=== PATIENT | male | born 1955 | race Caucasian/White ===

== ENCOUNTER 2020-04-23 06:46 | Inpatient (IN) ==
--- NOTE | 2020-04-16 14:33 | Anesthesiology Consultation ---
Date of Service April 16, 2020 Assessment & Plan (1) Encounter for pre-operative examination: Chart Review Chart Review: Acceptable Risk for Surgery (pending DOS labs and preop Covid testing results ) and Patient NOT seen in Pre Admission Testing - No updated preop labs done- will order CBC with diff, PRP and PT/PTT/INR for stat AM of surgery. - Check BSG AM DOS Per nursing assessment 04/16/2020, patient resides in [facility]. Denies recent travel. Wears mask, uses good hand hygiene and socially distances. No known Covid positive contacts or Covid related symptoms. Pt scheduled for preop Covid testing 04/18/20. History Surgery Operation Date: 04/23/20 07:30 Proposed Procedures p Right Total Shoulder Arthroplasty - Jagdish Muse DO s Versus Reverse Total Shoulder Arthroplasty - Jagdish Muse DO Height/Weight Height: 5 ft 8 in Weight: 120.202 kg Allergies Allergy/AdvReac Type Severity Reaction Status Date / Time No Known Allergies Allergy Verified 04/16/20 13:16 Medications Home Medications Medication Instructions Recorded Confirmed Last Taken amlodipine 10 mg tablet 10 mg PO QAM 06/21/19 04/16/20 Unknown aspirin 81 mg tablet,delayed 81 mg PO QAM 06/21/19 04/16/20 Unknown release ferrous sulfate 325 mg (65 mg 650 mg PO QAM 06/21/19 04/16/20 Unknown iron) tablet fluoxetine 20 mg capsule 20 mg PO QAM 06/21/19 04/16/20 Unknown losartan 100 mg tablet 100 mg PO QAM 06/21/19 04/16/20 Unknown oxycodone 5 mg capsule 5 mg PO QID PRN cap 06/21/19 04/16/20 Unknown potassium chloride 10 mEq 10 meq PO BID 06/21/19 04/16/20 Unknown tablet,extended release(part/cryst) terazosin 10 mg capsule 10 mg PO QPM 06/21/19 04/16/20 Unknown trazodone 50 mg tablet 50 - 100 mg PO QPM PRN 06/21/19 04/16/20 Unknown valacyclovir 1 gram tablet 1,000 mg PO QAM 06/21/19 04/16/20 Unknown cholecalciferol (vitamin D3) 10,000 unit PO QAM 09/14/19 04/16/20 Unknown [Vitamin D3] cyanocobalamin (vitamin B-12) 1,000 mcg PO QAM 09/14/19 04/16/20 Unknown [Vitamin B-12] jmnzvoun-ayi-uolfw-vit K-lycop 1 tab PO QAM 09/14/19 04/16/20 Unknown [Men's 50 Plus Multivitamin] torsemide 10 mg PO BID 09/14/19 04/16/20 Unknown Past Medical History Medical History Anemia Has issues with iron absorption since gastric bypass - takes iron supplement 130mg daily Chronic pain back and right shoulder Depression Enlarged prostate History of asthma as child- no current issues History of atrial fibrillation had ablation - no longer an issue- no recent cardio follow up - was on Pradaxa- d/c'ed- no issues with one month long Holter monitor 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, LEFT EYE Hx of diabetes mellitus Diet controlled; had gastric surgery - weight loss and no longer on meds Hypertension Osteoarthritis Sleep apnea Uses BiPAP q HS Spinal stenosis Past Family History Family History Mother FHx: stomach cancer Past Surgical History Surgical History History of excision of pilonidal cyst History of left shoulder replacement History of radiofrequency ablation (RFA) procedure for cardiac arrhythmia 2013 [facility] History of total left knee replacement Hx of cardiac cath 2013 [facility] Hx of colonoscopy Hx of gastric bypass 2007 [place] Social History Smoking Status: Never smoker Do You Dip or Chew Tobacco: No Hx Alcohol Use: Yes Alcohol type: wine alcohol intake frequency: a few times a week Hx Substance Use: No substance use type: does not use Testing Electrocardiogram Date: 09/20/19 SB with 1st degree AVB at 51bpm. Rightward axis. Chest X-Ray Date: 09/20/19 Mild cardiac enlargement without radiographic evidence of congestive failure. Trace pleural effusions. Atelectasis is noted at the lung bases. There is no airspace consolidation typical for pneumonia. There is no pneumothorax. The pulmonary vascular structures noncongested.
[2020-04-18 14:18] LABS: Basophils # (auto) 0.02 K/uL (0-0.2); Basophils % (auto) 0.4 %; Eosinophils # (auto) 0.33 K/uL (0-0.5); Eosinophils % (auto) 6.1 %; Hematocrit (blood only) 43.1 % (42-52); Lymphocytes # (auto) 1.58 K/uL (1.2-3.4); Lymphocytes % (auto) 29.2 %; Mean Corpuscular Hemoglobin 30.5 pg (25-34); Mean Corpuscular Hgb Conc 32.5 g/dL (32-36); Mean Corpuscular Volume 93.9 fL (80-100); Mean Platelet Volume 11.3 fL (7.4-10.4); Monocytes # (auto) 0.45 K/uL (0.11-0.59); Monocytes % (auto) 8.3 %; Neutrophils # (auto) 3.03 K/uL (1.4-6.5); Platelet Count 173 K/uL (130-400); RDW Coefficient of Variation 13.8 % (11.5-14.5); RDW Standard Deviation 47.6 fL (36.4-46.3); Red Blood Count 4.59 M/uL (4.7-6.1); White Blood Count 5.41 K/uL (4.8-10.8)
[2020-04-18 14:28] LABS: INR 1.1 (0.9-1.1); Partial Thromboplastin Ratio 1.1; Partial Thromboplastin Time 31.6 Seconds (21.0-31.0); Prothrombin Time 11.2 Seconds (9.0-12.0)
[2020-04-18 14:46] LABS: BUN Creatinine Ratio 10.7 (10-20); Blood Urea Nitrogen 20 mg/dl (7-18); Calcium 9.5 mg/dl (8.5-10.1); Carbon Dioxide 30 mmol/L (21-32); Chloride 106 mmol/L (98-107); Est GFR (African American) 43.6; Est GFR (Non-African American) 37.6; Glucose 83 mg/dl (70-99); Potassium 3.7 mmol/L (3.5-5.1); Sodium 142 mmol/L (136-145)
--- NOTE | 2020-04-19 12:15 | History & Physical Report ---
Date of Service April 19, 2020 Assessment & Plan (1) Osteoarthritis of right shoulder: We will proceed with a right total shoulder arthroplasty. Postoperatively he will be placed in a sling and kept overnight in the hospital for postoperative medical management. He plans to go to outpatient physical therapy at [facility] upon discharge. Present on Admission?: Yes History of Present Illness Chief Complaint: Primary osteoarthritis of the right shoulder Primary Care Provider: Zen Peñaloza is a pleasant 64-year-old male who is been dealing with chronic increasing right shoulder pain. X-rays and clinical examination have been diagnostic for advanced osteoarthritis of the right shoulder. He does have a history of a left shoulder replacement done by Dr. Neff at [facility] orth[facility] and has done fairly well with that. He is now ready to proceed with a right shoulder replacement surgery. Allergies Allergy/AdvReac Type Severity Reaction Status Date / Time No Known Allergies Allergy Verified 04/16/20 13:16 Home Medications Home Medications Medication Instructions Recorded Confirmed Type amlodipine 10 mg tablet 10 mg PO QAM 06/21/19 04/16/20 History aspirin 81 mg tablet,delayed 81 mg PO QAM 06/21/19 04/16/20 History release ferrous sulfate 325 mg (65 mg 650 mg PO QAM 06/21/19 04/16/20 History iron) tablet fluoxetine 20 mg capsule 20 mg PO QAM 06/21/19 04/16/20 History losartan 100 mg tablet 100 mg PO QAM 06/21/19 04/16/20 History oxycodone 5 mg capsule 5 mg PO QID PRN cap 06/21/19 04/16/20 History potassium chloride 10 mEq 10 meq PO BID 06/21/19 04/16/20 History tablet,extended release(part/cryst) terazosin 10 mg capsule 10 mg PO QPM 06/21/19 04/16/20 History trazodone 50 mg tablet 50 - 100 mg PO QPM PRN 06/21/19 04/16/20 History valacyclovir 1 gram tablet 1,000 mg PO QAM 06/21/19 04/16/20 History cholecalciferol (vitamin D3) 10,000 unit PO QAM 09/14/19 04/16/20 History [Vitamin D3] cyanocobalamin (vitamin B-12) 1,000 mcg PO QAM 09/14/19 04/16/20 History [Vitamin B-12] ttfnbnxo-qyj-hecpb-vit K-lycop 1 tab PO QAM 09/14/19 04/16/20 History [Men's 50 Plus Multivitamin] torsemide 10 mg PO BID 09/14/19 04/16/20 History Past Med/Surg History Medical History Anemia Has issues with iron absorption since gastric bypass - takes iron supplement 130mg daily Chronic pain back and right shoulder Depression Enlarged prostate History of asthma as child- no current issues History of atrial fibrillation had ablation - no longer an issue- no recent cardio follow up - was on Pradaxa- d/c'ed- no issues with one month long Holter monitor 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, LEFT EYE Hx of diabetes mellitus Diet controlled; had gastric surgery - weight loss and no longer on meds Hypertension Osteoarthritis Sleep apnea Uses BiPAP q HS Spinal stenosis Surgical History History of excision of pilonidal cyst History of left shoulder replacement History of radiofrequency ablation (RFA) procedure for cardiac arrhythmia 2013 - [facility] History of total left knee replacement Hx of cardiac cath 2013 [facility] Hx of colonoscopy Hx of gastric bypass [place] [facility] Family History Mother FHx: stomach cancer Social History Smoking Status: Never smoker Second Hand Exposure: Yes (FATHER SMOKED); Hx Alcohol Use: Yes Alcohol type: wine Hx Substance Use: No Preferred Language: Tunisian Communication Ability: Effective Beliefs That Will Affect Care: None Current Living Situation: Spouse Feels Safe at Home: Yes Review of Systems Review of Systems: All systems reviewed & are unremarkable except as noted in HPI & below Physical Exam Constitutional: WD/WN, vitals as above Eyes: PERRL, conjunctivae normal, anicteric sclerae ENMT: external ear and nose normal, oropharynx normal Neck: trachea midline, no thyromegaly Respiratory: normal respiratory effort Cardiovascular: RRR, no murmur, no edema Gastrointestinal (Abdomen): normal bowel sounds, soft, nontender, no hepatosplenomegaly Musculoskeletal: Physical examination of the right shoulder reveals decreased range of motion and crepitis throughout. There is good strength with full can testing and external rotation. There is tenderness palpation along the anterior glenohumeral joint line. The right upper extremity is neurovascularly intact. Psychiatric: A+Ox3, euthymic affect Results & Data Results & Data ([facility]) Diagnostic Findings Radiographs of the right shoulder show osteoarthritis of the glenohumeral joint. There is joint space narrowing, osteophyte formation, and hxxk-ha-wkif articulation. PG Care Time/CCT Total # of Minutes Spent Total Time Spent with Patient: Total time spent is greater than 50% in coordination of care (as documented) at patient's floor/unit and/or counseling patient: Coding Level of Care Code 39168 Initial Inpt Care Lvl 2 Diagnoses Osteoarthritis of right shoulder M19.011
[~2020-04-23 06:46] MED LIST: ACETAMINOPHEN 500 MG TAB PO SCH; BUPIVACAINE 0.5 % 5 MG/1 ML PF 10ML VIAL ONE; CEFAZOLIN 3000MG 72.5 ML IV SCH; FAMOTIDINE 20 MG TAB PO SCH; GABAPENTIN 300 MG CAP PO SCH; LR 15ML/HR IV SCH; LR 60ML/HR IV SCH; ROPIVACAINE 0.5% HCL/PF 150 MG, BUPIVACAINE 0.5% MPF 30 ML, EPINEPHrine 30MG/30ML (OR U... INFIL SCH; TRANEXAMIC ACID 1,000 MG **IV Intra-op IV SCH; TRANEXAMIC ACID 1,000 MG **IV Pre-op IV SCH; dexAMETHasone 4 MG TAB PO SCH
--- NOTE | 2020-04-23 07:29 | History & Physical Bridge Note ---
Date of Service April 23, 2020 History & Physical Bridge Note I have examined the patient, reviewed the History & Physical and in the interval since the performance of the History & Physical I have noted the following changes of clinical significance: no changes noted
[2020-04-23 08:56] LABS: SARS CoV2 RNA (COVID-19) NOT DETECTED
[2020-04-23] MEDS ORDERED: ORTHO JOINT ANESTHETIC ONE (09:30)
--- NOTE | 2020-04-23 11:12 | Operative Report ---
PG Post Operative Report Pre & Post Diagnosis Operation Date: 04/23/20 09:05 Pre-Op Diagnosis: Degenerative Joint Disease Right Shoulder with tendinopathy of the long head of the biceps tendon Post-Op Diagnosis: Degenerative Joint Disease Right Shoulder with tendinopathy of the long head of the biceps tendon I identified the patient and participated in the time-out.: Yes Procedure Operation Date: 04/23/20 09:05 Actual Procedures p Right Total Shoulder Arthroplasty, Cemented with open biceps tenodesis as a distinct and separate procedure (modifier 59) Surgeon Jagdish Muse DO Compounder Helper Jagdish Howard PAC Estimated Blood Loss 250 Findings Consistent with Post-Op Diagnosis Specimens Right humeral head Complications none Disposition Disposition: Recovery Room Indications Jh is a pleasant 64-year-old male who is been dealing with chronic increasing right shoulder pain. X-rays and clinical examination were diagnostic for advanced osteoarthritis of the right shoulder. After failing conservative treatment, he elected to proceed with a right total shoulder arthroplasty. Description of Procedure A CPT code modifier 59: The long head of the biceps tendon was enlarged and inflamed consistent with tendinopathy. A tenodesis was opted. This was a separate and distinct portion of the procedure. For these reasons, a CPT code modifier 59 will be added to this case. Implants used: I used a [employer] Comprehensive total shoulder arthroplasty system with a size 14 press fit micro humeral stem, a size 50 x 21 eccentric humeral head, and a 3 glenoid with a trabecular metal peg. The glenoid was cemented in place with Palacos G cement. Simon arrived at [facility] for the above procedure. He was seen in the preoperative holding area and the operative extremity was identified and signed. He was given a preoperative antibiotic, TXA, and an interscalene nerve block. He was taken back to the operating room, laid on table in supine posi tion, and put under general anesthesia. He was then put into the beachchair position. The shoulder was then prepped and draped in sterile fashion. A timeout was done and the patient and the operative extremity was properly identified. A deltopectoral approach was used. Dissection was taken down through the fascia and the deltoid was retracted laterally and the conjoined tendon was retracted m edially. The anterior shoulder was exposed. The biceps groove was opened up and the biceps tendon was examined extensively. The biceps tendon demonstrated enlargement and inflammatory changes consistent with longstanding inflammation in the context of osteoarthritis. The long head of the biceps tendon was then tenodesed to the upper border of the pectoralis major. This was a separate and distinct portion of the procedure. The subscapularis was then released off the lesser tuberosity with a centimeter of cuff tissue remaining. The inferior capsule was released and the humeral head was dislocated. The rotator cuff was inspected and intact. A canal finding reamer was sent down the center of the humeral canal. Sequential reaming up to a size 14 reamer was done. Offset reamer a proximal humeral resection guide was placed. The proximal humerus was resected at 135 of inclination and 30 of retroversion. Inferior osteophytes were then removed and the glenoid was exposed. Time was spent doing an appropriate labral release. The glenoid measured to be a size 3. A 3.2 mm Steinmann pin was placed in the central hole of the glenoid vault pin guide. The glenoid was then reamed with a propeller reamer. The central post cutter was then used to prepare for the central boss. The cannulated peripheral peg drill guide was then placed and 3 peg holes were drilled. The final size 3 glenoid was then cemented in place with Palacos G cement. Surrounding soft tissues were then injected with 100 cc of an orthopedic pain control cocktail. Once cement had dried the proximal humerus was once again exposed. Sequential broaching of the humerus up to a size 14 broach was done. Off that broach a size 50 x 21 eccentric humeral head was trialed. The shoulder was then reduced, brought through a full range of motion, and felt to be stable. The shoulder was then dislocated and the broach was removed. The final size 14 micro humeral stem implant was then impacted into place. A size 50 x 21 eccentric humeral head was then impacted onto the humeral stem. The shoulder was then reduced and once again brought through a full range of motion and felt to be stable. The subscapularis was then tenodesed back to the lesser tuberosity with transosseous FiberWire sutures and side to side sutures with the arm in 45 of external rotation. 2 sutures were placed in the lateral rotator interval. A dilute betadyne lavage was then done for 3 minutes. The joint was then irrigated with normal saline solution. Hemostasis was obtained. The interval was closed with 2-0 Vicryl suture. The skin was closed with 2-0 Vicryl and ezra. A Silverlon dressing was placed and the arm was rested in a regular arm sling. He was then extubated and transferred to a hospital bed. He was taken to the postanesthesia care unit in stable condition. He tolerated the procedure well. Jagdish Howard PA-C, was present for the entire procedure. He was critical for patient positioning, prepping, draping, retraction exposure, wound closure and application of sterile dressing. I attest to the content of the Intraoperative Record and any orders documented therein. Any exceptions are noted below.
--- NOTE | 2020-04-23 12:04 | XRay Report ---
XR shoulder RT min 2V routine HISTORY: 64 years-old Male Post shoulder surgery right shoulder total joint arthroplasty COMPARISON: Right shoulder radiographs 04/10/2020 TECHNIQUE: 2 views of the right shoulder FINDINGS: Right shoulder total joint arthroplasty demonstrates satisfactory alignment without acute fracture or unexpected radiopaque foreign body. Lateral skin ezra are noted along with expected postsurgical soft tissue swelling and deep tissue air. Hypoinflation with right lung base opacities suggestive of atelectasis. IMPRESSION: Right shoulder total joint arthroplasty with expected postoperative changes. ACT 112: Negative or not required by law. The above report was generated using voice recognition software. It may contain grammatical, syntax o r spelling errors. Electronically signed by: Barrie Macias M.D. 04/23/2020 12:02 PM
[2020-04-23] MEDS ORDERED: ePHEDrine sulfate 50 MG/ML AMP IV PRN (12:16)
[2020-04-23] MEDS ORDERED: ATROPINE SULFATE 0.1 MG/ML 10ML SYR IV PRN (12:16)
[2020-04-23] MEDS ORDERED: fentaNYL citrate 100 MCG/2 ML VIAL IV PRN (12:16)
[2020-04-23] MEDS ORDERED: ONDANSETRON INJ 2 MG/ML 2 ML VIAL IV PRN ×2 (12:16→12:59)
--- NOTE | 2020-04-23 12:17 | Anesthesiology Progress Note ---
Date of Service April 23, 2020 Anesthesia Post Procedure Vital Signs Vital Signs: Temp Pulse Pulse Resp BP Pulse Ox 04/23/20 12:10 56 L 15 112/62 97 04/23/20 12:00 64 12 154/69 H 95 04/23/20 11:50 67 18 141/77 H 97 04/23/20 11:41 98.1 F 66 12 147/84 H 98 04/23/20 09:15 49 L 16 121/73 100 04/23/20 09:05 51 L 18 120/74 100 04/23/20 08:31 57 L 18 174/80 H 99 04/23/20 07:44 97.9 F 63 20 173/85 H 96 Pain Intensity Right Shoulder: Pain Intensity: 0 Transfer of Care Handoff Completed per policy Notes Mental Status: alert / awake / arousable and participated in evaluation Patient Amnestic to Procedure: Yes Nausea / Vomiting: adequately controlled Pain: adequately controlled Airway Patency, RR, SpO2: stable & adequate BP & HR: stable & adequate Hydration State: stable & adequate Anesthetic Complications: no major complications apparent and Pt Satisfied with anesthetic care
[2020-04-23] MEDS ORDERED: HYDROmorphone INJ 0.5 MG/0.5 ML SYR IV PRN (12:59)
[2020-04-23] MEDS ORDERED: METOCLOPRAMIDE HCL INJ 5 MG/ML 2 ML VIAL IV PRN (12:59)
[2020-04-23] MEDS ORDERED: bisacodyL 10 MG SUPP PR PRN (12:59)
[2020-04-23] MEDS ORDERED: OXYCODONE HCL IR 5 MG TAB (IMMEDIATE RELEASE) PO PRN (12:59)
[2020-04-23] MEDS ORDERED: TRAZODONE HCL 50 MG TAB PO PRN (12:59)
[2020-04-23] MEDS ORDERED: NALOXONE HCL 0.4 MG/1 ML VIAL/CARP IV PRN (12:59)
[2020-04-23] MEDS ORDERED: MAGNESIUM HYDROXIDE SUSP 30 ML UDC PO PRN (12:59)
[2020-04-23] MEDS: ACETAMINOPHEN 500 MG TAB PO SCH ×2 (14:24→23:06)
[2020-04-23] MEDS: KETOROLAC TROMETHAMINE 15 MG/ML VIAL IV SCH ×2 (14:24→20:47)
[2020-04-23] MEDS: CEFAZOLIN 2000MG 2,000 MG/15 ML SYR IV SCH (16:44)
[2020-04-23] MEDS: TORSEMIDE 10 MG TAB PO SCH (16:45)
[2020-04-23] MEDS: SODIUM CHLORIDE 0.9% 1000ML 1,000 ML IV SCH ×2 (18:40→20:54)
[2020-04-23] MEDS: POTASSIUM CHLORIDE 10 MEQ TABCR PO SCH (20:47)
[2020-04-23] MEDS: DOCUSATE SODIUM 100 MG CAP PO SCH (20:47)
[2020-04-23] MEDS ORDERED: TERAZOSIN HCL 5 MG CAP PO SCH (21:00)
[2020-04-23] MEDS ORDERED: SENNA 8.6 MG TAB PO SCH (21:00)
[2020-04-24] MEDS: CEFAZOLIN 2000MG 2,000 MG/15 ML SYR IV SCH (01:57)
[2020-04-24] MEDS: KETOROLAC TROMETHAMINE 15 MG/ML VIAL IV SCH ×2 (01:57→08:52)
[2020-04-24] MEDS: ACETAMINOPHEN 500 MG TAB PO SCH (05:36)
[2020-04-24 06:24] LABS: Hematocrit (blood only) 38.7 % (42-52); Immature Granulocytes # (auto) 0.01 K/uL (0.00-0.02); Immature Granulocytes % (auto) 0.1 %; Lymphocytes # (auto) 0.76 K/uL (1.2-3.4); Mean Corpuscular Hemoglobin 31.6 pg (25-34); Mean Corpuscular Hgb Conc 33.6 g/dL (32-36); Mean Corpuscular Volume 94.2 fL (80-100); Mean Platelet Volume 10.8 fL (7.4-10.4); Monocytes # (auto) 0.56 K/uL (0.11-0.59); Monocytes % (auto) 5.2 %; Neutrophils # (auto) 9.53 K/uL (1.4-6.5); Neutrophils % (auto) 87.7 %; Platelet Count 152 K/uL (130-400); RDW Coefficient of Variation 13.8 % (11.5-14.5); RDW Standard Deviation 47.6 fL (36.4-46.3); Red Blood Count 4.11 M/uL (4.7-6.1); White Blood Count 10.86 K/uL (4.8-10.8)
[2020-04-24 06:46] LABS: BUN Creatinine Ratio 12.6 (10-20); Calcium 9.2 mg/dl (8.5-10.1); Creatinine Clr Calc Pharmacy 48.4 ml/min; Est GFR (African American) 40.1; Est GFR (Non-African American) 34.6; Potassium 4.2 mmol/L (3.5-5.1)
--- NOTE | 2020-04-24 06:50 | Orthopedic Progress Note ---
Date of Service April 24, 2020 Assessment & Plan (1) Status post replacement of right shoulder joint: Overall he is doing very well. Is not having much pain in the right shoulder. He will be seen by physical therapy today for ambulation and range of motion exercises. He can be discharged home later today. He will follow-up with orthopedics in 2 weeks. Present on Admission?: Yes Admission and Anticipated Discharge Date Admission Date: April 23, 2020 Bell Peñaloza was seen and examined at bedside this morning. Overall he is doing very well. Is not having much pain in the right shoulder. He was able to get some sleep last night. He has no complaints. Physical Exam Musculoskeletal: On physical examination of the right shoulder, the dressing is clean and dry. He is wearing his sling as instructed. His radial, median, and ulnar nerves are checked and intact at his wrist. Results & Data ([facility]) Vital Signs (Past 12 Hours) Vital Signs Temp Pulse Resp BP Pulse Ox 04/24/20 03:11 36.4 C L 59 L 16 116/66 95 04/23/20 22:54 36.5 C 54 L 16 115/66 94 04/23/20 20:00 36.5 C 67 16 118/72 96 Laboratory Results H & H 04/18/20 04/24/20 Range/Units 10:43 05:54 Hgb 14.0 13.0 L (14.0-18.0) g/dL Hct 43.1 38.7 L (42-52) % Coagulation 04/18/20 Range/Units 10:43 INR 1.1 (0.9-1.1) Diagnostic Findings Postoperative x-rays of the right shoulder show the prosthesis to be in anatomic alignment without any evidence of fracture, dislocation, or loosening. PG Care Time/CCT Total # of Minutes Spent Total Time Spent with Patient: Total time spent is greater than 50% in coordination of care (as documented) at patient's floor/unit and/or counseling patient: Coding Level of Care Code None Diagnoses Status post replacement of right shoulder joint Z96.611
--- NOTE | 2020-04-24 06:51 | Discharge Summary ---
Date of Service April 24, 2020 Admission HPI Per Admitting Provider Jh is a pleasant 64-year-old male who is been dealing with chronic increasing right shoulder pain. X-rays and clinical examination have been diagnostic for advanced osteoarthritis of the right shoulder. He does have a history of a left shoulder replacement done by Dr. Neff at [facility] and has done fairly well with that. He is now ready to proceed with a right shoulder replacement surgery. Principal Diagnosis Right shoulder replacement Discharge Data Allergies Allergy/AdvReac Type Severity Reaction Status Date / Time No Known Allergies Allergy Verified 04/23/20 07:38 Consultations 04/23/20 12:59 Consult Case Management - Discharge Planning Routine Procedures Performed Operation Date: 04/23/20 09:05 Actual Procedures p Right Total Shoulder Arthroplasty, Cemented(Right) - Jagdish Muse DO Ordered Studies 04/23/20 05:00 US - OR guided needle placemen Routine Hospital Course (1) Status post replacement of right shoulder joint: On April 23, 2020 Jh arrived at [facility] and underwent a right shoulder replacement without complication. He had a general anesthetic and a right interscalene nerve block. Postoperatively he was placed in a sling and transferred to the general orthopedic floors. His hospital course was uneventful. On postop day #1 his H&H was stable and his pain was well controlled. He was able to participate well with physical therapy doing ambulation and range of motion exercises. He was then discharged home. He will follow-up with orthopedics in 2 weeks. Total Time Total Time Spent Total Time Spent (In Minutes): 20 Discharge Plan Discharge Items Patient Disposition: Home - Home Health Services Reason For Visit: DJD RIGHT SHOULDER Discharge Diagnosis: Right shoulder replacement Activity: As commented below Non-emergency contact: Surgeon Call non-emergency contact if: your wound has increased redness and your wound has increased drainage Follow-up/Referrals: Zen Thomas M.D. [Primary Care Provider] - Diet: Regular Addtl Attending Provider Instructions: Activity and Therapy Recommendations: * If you are using [facility] then therapy will be provided at your home until they feel you have accomplished all of your goals. * If you are using [facility] then Physical Therapy will be provided until they feel you are ready to start Outpatient Physical Therapy. * If you are not using home therapy then Outpatient Physical Therapy should star t about 3-5 days from your day of surgery. Therapy will last about 8-12 weeks * Wear your sling for 3 weeks, unless otherwise instructed. You may remove your sling to shower and to dress, but otherwise, you should be in your sling at all times, including while sleeping * The shoulder replacement is very stable and you can use your hand while in the sling * You were shown a series of exercises in the hospital. Do these exercises daily including the exercises you were shown in physical therapy. Medications: * Narcotic You will likely be sent home from the hospital with a prescription for the narcotic pain medication that worked best throughout your stay. * Other medications may be prescribed for specific circumstances. If you have any questions, please call the office at . * Resume previous home medications unless otherwise instructed Dressing Care: Leave the Silverlon dressing in place for 7 days. After 7 days you may remove the dressing. If the incision is not draining then you may leave the ezra open to air. If there is a little bit of drainage or if the ezra are getting stuck on your clothing then cover the incision with a dry dressing. The ezra will be removed at your 2 week follow-up appointment. Showering: You may shower with the Silverlon dressing in place. Do not let the shower spray hit the dressing directly. Pat the Silverlon dressing dry. If the dressing becomes wet underneath, then simply remove the dressing. Keep the incision dry until you are 7 days out from the day of surgery. After 7 days you may remove the Silverlon dressing and shower with the ezra exposed. Let soapy water run over the ezra and pat them dry. Do not scrub or soak the incision. Things To Watch For: * Drainage from the incision site that occurs more than one week after your surgery. * Increased redness at the incision site. * Fever above 102 degrees Fahrenheit. * Unusual chest pain or shortness of breath. * Call [facility] at with any of the above ra [place] Follow-Up Visit: Follow-up with Dr. Msue's PA (Jagdish Howard) 2-3 weeks after your day of surgery. He will remove your erza and answer any questions. If you have any additional questions or concerns, Dr Muse is usually in the office at the same time and will be available An appointment was probably scheduled when you signed-up for surgery in the office. If you have any questions call More detailed instructions as well as Frequently Asked Questions were provided in a folder by our office when you signed-up for surgery. Please review these instructions when you get home. If you have any further questions or concerns, please feel free to call the office at [phone] Pending Studies at Discharge: No Stand-Alone Forms: [facility], Smoking Cessation Medications and DC Order Prescriptions: Continued amlodipine 10 mg tablet 10 mg PO QAM RF: 0 aspirin [Adult Low Dose Aspirin] 81 mg tablet,delayed release (DR/EC) 81 mg PO QAM RF: 0 fluoxetine [Prozac] 20 mg capsule 20 mg PO QAM RF: 0 ferrous sulfate [Feosol] 325 mg (65 mg iron) tablet 650 mg PO QAM RF: 0 losartan 100 mg tablet 100 mg PO QAM RF: 0 potassium chloride 10 mEq tablet,ER particles/crystals 10 meq PO BID RF: 0 terazosin 10 mg capsule 10 mg PO QPM RF: 0 trazodone 50 mg tablet 50 - 100 mg PO QPM PRN (Reason: Sleep) RF: 0 valacyclovir 1 gram tablet 1,000 mg PO QAM RF: 0 cyanocobalamin (vitamin B-12) [Vitamin B-12] 1,000 mcg Tablet 1,000 mcg PO QAM RF: 0 torsemide 10 mg Tablet 10 mg PO BID RF: 0 cholecalciferol (vitamin D3) [Vitamin D3] 125 mcg (5,000 unit) Tablet 10,000 unit PO QAM RF: 0 Men's 50 Plus Multivitamin 400-20-370 mcg Tablet 1 tab PO QAM RF: 0 oxycodone 5 mg capsule 5 mg PO QID PRN (Reason: Pain) Qty: 30 RF: 0 Discharge Orders: Discharge Order (Routine); Ordered 04/24/20 Ordered By: Jagdish Muse Admission Data Admit Date/Time: 04/23/20 12:09 Attending Provider: Jagdish Muse Admit Provider: Jagdish Muse Primary Care Provider: Zen Thomas Coding Level of Care Code D/C Day Management <30 mins Diagnoses Status post replacement of right shoulder joint Z96.611
[2020-04-24] MEDS ORDERED: dexAMETHasone 4 MG TAB PO SCH (08:00)
[2020-04-24] MEDS: DOCUSATE SODIUM 100 MG CAP PO SCH (08:50)
[2020-04-24] MEDS: POTASSIUM CHLORIDE 10 MEQ TABCR PO SCH (08:50)
[2020-04-24] MEDS: FLUOXETINE HCL 20 MG CAP PO SCH ×2 (08:52→08:56)
[2020-04-24] MEDS: TORSEMIDE 10 MG TAB PO SCH (08:52)
[2020-04-24] MEDS ORDERED: AMLODIPINE BESYLATE 5 MG TAB PO SCH (09:00)
[2020-04-24] MEDS ORDERED: FERROUS SULFATE 325 MG TAB PO SCH (09:00)
[2020-04-24] MEDS ORDERED: LOSARTAN POTASSIUM 50 MG TAB PO SCH (09:00)
[2020-04-24] MEDS ORDERED: ASPIRIN 81 MG ECTAB PO SCH (09:00)
[2020-04-24] MEDS ORDERED: MULTIVITAMIN TAB PO SCH (09:00)
[2020-04-24] MEDS ORDERED: VALACYCLOVIR HCL 500 MG TABLET PO SCH (09:00)
== END 2020-04-24 13:21 | disposition home or self-care (01) | DRG 483 ==
LOC: ASU 06:46 → 3E 12:09